=== PATIENT | female | born 1995 | race Hispanic/Latino ===

== ENCOUNTER 2016-10-21 20:11 | Emergency (ER) | payer MEDICAID ==
[2016-10-21 20:37] VITALS: BP 121/75; PULSE 50; RESP 16; TEMP 98.3; O2SAT 100
[2016-10-21] MEDS ORDERED: Amoxicillin-Clav 875-125 mg Tab PO STA (20:49)
[2016-10-21] MEDS ORDERED: Ciprofloxacin/Dexamethasone OTIC SUSP AS STA (21:01)
[2016-10-21] MEDS ORDERED: Amoxicillin-Clav 875-125 mg Tab PO ONE (21:06)
--- NOTE | 2016-10-21 21:15 | ED PDOC ---
HPI: General Adult Time Seen by Provider: 10/21/16 20:43 Chief Complaint (Nursing): ENT Problem Chief Complaint (Provider): Bilateral Ear Pain History Per: Patient History/Exam Limitations: no limitations Additional Complaint(s): Rosaline Del Cid is a 21 year old female that presents to the ED with a chief complaint of bilateral ear pain that she has been experiencing for the past week. Patient states that she was on a plane last week coming back from a trip, and when the plane landed her ears "popped" to adjust to the altitude change, and never "popped back." She then reports that she went to an Urgent Care earlier today for her pain, where her left ear was manipulated with an unknown tool which resulted in her ear bleeding, prompting her ED visit. Patient additionally states that she cannot hear out of her right ear. No meds taken for pain relief prior to arrival. Patient denies any acute hearing loss. Past Medical History Reviewed: Historical Data, Nursing Documentation, Vital Signs Vital Signs: Last Vital Signs Temp 98.3 F 10/21/16 20:33 Pulse 50 L 10/21/16 20:33 Resp 16 10/21/16 20:33 BP 121/75 10/21/16 20:33 Pulse Ox 100 10/21/16 21:20 - Medical History PMH: No Chronic Diseases - Surgical History Surgical History: No Surg Hx - Family History Family History: States: No Known Family Hx - Living Arrangements Living Arrangements: With Family - Social History Current smoker - smoking cessation education provided: No Alcohol: Social Drugs: Denies - Home Medications Home Medications: Ambulatory Orders Medication Instructions Recorded Amoxicillin/Clavulanate [Augmentin 1 tab PO BID #14 tab 10/21/16 875 MG-125 MG] Ciprofloxacin/Dexamethasone 4 drop TOP ASDIR #1 bottle 10/21/16 [Ciprodex Otic] Ibuprofen [Motrin Tab] 800 mg PO Q8 PRN #20 tab 10/21/16 - Allergies Allergies/Adverse Reactions: Allergies Allergy/AdvReac Type Severity Reaction Status Date / Time No Known Allergies Allergy Verified 10/21/16 20:33 Review of Systems ROS Statement: Except As Marked, All Systems Reviewed And Found Negative Constitutional: Negative for: Fever ENT: Positive for: Ear Pain (bilateral), Other (Left ear bleeding. Patient reports she cannot hear out of right ear.) Respiratory: Negative for: Cough Neurological: Negative for: Headache, Dizziness Physical Exam - Reviewed Nursing Documentation Reviewed: Yes Vital Signs Reviewed: Yes - Physical Exam Appears: Positive for: Non-toxic, No Acute Distress Head Exam: Positive for: ATRAUMATIC, NORMOCEPHALIC Skin: Positive for: Normal Color, Warm Eye Exam: Positive for: Normal appearance, EOMI, PERRL ENT: Positive for: TM Is/Are (suspect left TM perforation however TM is poorly visualized due to cerumen in AC, blood present in auditory canal, mild pain upon tugging left external ear.), Other (Cerumen impacted right auditory canal) . Negative for: Normal ENT Inspection Neck: Positive for: Normal Cardiovascular/Chest: Positive for: Regular Rate, Rhythm Respiratory: Positive for: Normal Breath Sounds Neurologic/Psych: Positive for: Alert, Oriented. Negative for: Motor/Sensory Deficits - Laboratory Results Urine POC: Negative - ECG O2 Sat by Pulse Oximetry: 100 (RA) Pulse Ox Interpretation: Normal Medical Decision Making Medical Decision Making: Impression: Left TM perf, Right ear cerumen impaction Plan: * Tylenol 650 mg PO * Augmentin 1 tab PO * Toradol 30 mg IM * Reevaluation Suspect TM perforation. Patient was offered initial dose of augmentin in ED but she refused because she has not has anything to eat in several hours. Rx given for augmentin PO and ciprodex ear drops. Motrin rx also ginen. Patient was referred to ENT clinician oncology and she was advised to follow up in 1-2 days. Scribe Attestation: Documented by Tanna Sanchez, acting as a scribe for Aileen Chase PA-C. Provider Scribe Attestation: All medical record entries made by the Scribe were at my direction and personally dictated by me. I have reviewed the chart and agree that the record accurately reflects my personal performance of the history, physical exam, medical decision making, and the department course for this patient. I have also personally directed, reviewed, and agree with the discharge instructions and disposition. Disposition - Clinical Impression Clinical Impression: Perforated eardrum, Cerumen impaction - Patient ED Disposition Is Patient to be Admitted: No Counseled Patient/Family Regarding: Diagnosis, Need For Followup, Rx Given - Disposition Referrals: Alphonse Burnett MD [Staff Provider] - Disposition: Routine/Home Disposition Time: 21:36 Condition: STABLE Additional Instructions: Use over the counter Murine drops and over the counter wax removal kit to remove wax from right ear. Take rx meds as directed. Follow up in 1-2 days with ear, nose and throat specialist. Prescriptions: Amoxicillin/Clavulanate [Augmentin 875 MG-125 MG] 1 tab PO BID #14 tab Ciprofloxacin/Dexamethasone [Ciprodex Otic] 4 drop TOP ASDIR #1 bottle Ibuprofen [Motrin Tab] 800 mg PO Q8 PRN #20 tab PRN Reason: Pain, Moderate (4-7) Instructions: Ruptured Eardrum (ED), Cerumen Impaction (ED) Forms: [employer] (Gambian)
== END 2016-10-21 21:57 | disposition home or self-care (01) ==
LOC: H.ER 20:11
DX: H61.21 Impacted cerumen, right ear (principal); H72.92 Unspecified perforation of tympanic membrane, left ear

== ENCOUNTER 2018-03-16 22:51 | Emergency (ER) | payer MEDICAID ==
[2018-03-17] MEDS ORDERED: Naproxen 500 MG TAB PO ONE ×2 (02:32→03:03)
--- NOTE | 2018-03-17 02:36 | ED PDOC ---
HPI: General Adult Time Seen by Provider: 03/17/18 02:10 Chief Complaint (Provider): dysuria History Per: Patient History/Exam Limitations: no limitations Onset/Duration Of Symptoms: Days (3), Waxing/Waning Additional Complaint(s): 23 y/o female presents for evaluation of intermittent dysuria x 3 days. Patient states she started taking Azo tablets at onset of symptoms, which helped, but then notes symptoms to have returned yesterday, with associated back pain. Denies fever, nausea/vomiting, chest pain, shortness of breath, palpitations, changes in bowel movements, hematuria, vaginal bleeding/discharge Past Medical History Reviewed: Historical Data, Nursing Documentation, Vital Signs - Medical History PMH: No Chronic Diseases - Surgical History Surgical History: No Surg Hx - Family History Family History: States: Unknown Family Hx - Living Arrangements Living Arrangements: With Family - Home Medications Home Medications: Ambulatory Orders Medication Instructions Recorded Amoxicillin/Clavulanate [Augmentin 1 tab PO BID #14 tab 10/21/16 875 MG-125 MG] Ciprofloxacin/Dexamethasone 4 drop TOP ASDIR #1 bottle 10/21/16 [Ciprodex Otic] Ibuprofen [Motrin Tab] 800 mg PO Q8 PRN #20 tab 10/21/16 Ciprofloxacin HCl [Cipro] 500 mg PO BID #13 tab 03/17/18 Naproxen [Naprosyn] 500 mg PO Q12 PRN #14 tablet 03/17/18 - Allergies Allergies/Adverse Reactions: Allergies Allergy/AdvReac Type Severity Reaction Status Date / Time No Known Allergies Allergy Verified 10/21/16 20:33 Review of Systems ROS Statement: Except As Marked, All Systems Reviewed And Found Negative Genitourinary Female: Positive for: Dysuria, Frequency Musculoskeletal: Positive for: Back Pain Physical Exam - Reviewed Nursing Documentation Reviewed: Yes Vital Signs Reviewed: Yes - Physical Exam Appears: Positive for: Well, Non-toxic, No Acute Distress Head Exam: Positive for: ATRAUMATIC, NORMAL INSPECTION, NORMOCEPHALIC Skin: Positive for: Normal Color Eye Exam: Positive for: Normal appearance ENT: Positive for: Normal ENT Inspection Cardiovascular/Chest: Positive for: Regular Rate, Rhythm Respiratory: Positive for: Normal Breath Sounds Gastrointestinal/Abdominal: Positive for: Normal Exam Back: Positive for: L CVA Tenderness Extremity: Positive for: Normal ROM Neurologic/Psych: Positive for: Alert, Oriented (x3) - Progress ED Course And Treament: -upreg -udip -urinalysis -urine c&s -naproxen PO Vitals stable. Will treat for pyelonephritis with Cipro (dose given in ED) Patient advised to d/c Azo Rx Naproxen and Cipro provided Encouraged increase fluid intake Follow up PMD within 2-3 days Return precautions given Disposition - Clinical Impression Clinical Impression: Pyelonephritis - Patient ED Disposition Is Patient to be Admitted: No Counseled Patient/Family Regarding: Studies Performed, Diagnosis, Need For Followup, Rx Given - Disposition Disposition: Routine/Home Disposition Time: 03:25 Condition: IMPROVED Prescriptions: Ciprofloxacin HCl [Cipro] 500 mg PO BID #13 tab Naproxen [Naprosyn] 500 mg PO Q12 PRN #14 tablet PRN Reason: Pain, Moderate (4-7) Instructions: Kidney Infection Forms: [employer] (Tristanian)
[2018-03-17 03:13] VITALS: BP 128/56; PULSE 72; RESP 18; TEMP 98.3; O2SAT 98
[2018-03-17 03:24] LABS: SQUAMOUS EPITHIAL 1 /hpf (0-5); URINE BACTERIA RARE (<OCC); URINE BILIRUBIN NEGATIVE (NEGATIVE); URINE BLOOD MODERATE (NEGATIVE); URINE CLARITY SLIGHTY-CLOUDY (Clear); URINE COLOR AMBER (YELLOW); URINE GLUCOSE (UA) NEG (NEGATIVE); URINE LEUKOCYTE ESTERASE MOD Leu/uL (Negative); URINE PROTEIN NEGATIVE (NEGATIVE)
== END 2018-03-17 03:35 | disposition home or self-care (01) ==
LOC: H.ER 22:51
DX: N12 Tubulo-interstitial nephritis, not specified as acute or chronic (principal)